=== PATIENT | female | born 2000 | race Two or more races ===

== ENCOUNTER 2023-04-22 00:41 | Inpatient (IN) | payer BC, OTHER ==
[2023-04-21] MEDS: LORAZEPAM INJ 2 MG/ML VIAL IV ONE (23:58)
[~2023-04-22] VITALS: Ht 170.2 cm; Wt 129.3 kg
--- NOTE | 2023-04-22 00:43 | NUR ---
FABY 87 FROM A CARE FACILITY FOR WITNESSED SEIZURE. PLACED COMFORTABLY IN BED, VITALS CHECKED.
[2023-04-22] MEDS ORDERED: DIVALPROEX SODIUM 500 MG TABLET.DR PO ONE ×2 (00:54→01:00)
[2023-04-22] MEDS ORDERED: LORAZEPAM INJ 2 MG/ML VIAL ONE (00:57)
--- NOTE | 2023-04-22 00:58 | NUR ---
RAC #20G S/L BLOOD COLLECTED AND SENT TO LAB
--- NOTE | 2023-04-22 00:58 | NUR ---
EKG DONE AT BEDSIDE
[2023-04-22] MEDS: LORAZEPAM INJ 2 MG/ML VIAL IV ONE (00:59)
--- NOTE | 2023-04-22 01:00 | NUR ---
PATIENT APPEARS TO BE SHAKING IN BED, FOAMING AT THE MOUTH FOR APPROXIMATELY ONE MINUTE DURING IV INSERTION. MD NOTIFIED. ATIVAN ORDERED AND GIVEN.
--- NOTE | 2023-04-22 01:02 | NUR ---
BB=[id number]
--- NOTE | 2023-04-22 01:11 | NUR ---
PT SIGNED A WAIVER TO PROCEED WITH THE CT
--- NOTE | 2023-04-22 01:20 | NUR ---
PT TO CT W/ TECH
[2023-04-22 01:22] LABS: PLATELET COUNT (AUTO) 192 K/uL (150-450); WHITE BLOOD COUNT (AUTO) 4.5 K/uL (4.3-11.0)
--- NOTE | 2023-04-22 01:35 | NUR ---
PT RETURNED FROM CT WHERE SHE APPARENTLY HAD SEIZURE EPISODES X2 (6 SECONDS, 20 SECONDS) SIMILAR TO SEIZURE UPON ED ARRIVAL. NOTIFIED.
[2023-04-22 01:36] LABS: ALANINE AMINOTRANSFERASE 35 U/L (12-78); ALBUMIN 3.7 g/dL (3.4-5.0); ALKALINE PHOSPHATASE 44 U/L (46-116); ASPARTATE AMINOTRANSFERASE 13 U/L (15-37); BILIRUBIN,DIRECT 0.1 mg/dL (0.0-0.2); BILIRUBIN,TOTAL 0.3 mg/dL (0.2-1.0); CALCIUM, SERUM 9.5 mg/dL (8.5-10.1); CARBON DIOXIDE 30 mmol/L (21-32); CHLORIDE 110 mmol/L (98-107); CREATININE 0.9 mg/dL (0.6-1.3); GLUCOSE 121 mg/dL (74-106); POTASSIUM 3.9 mmol/L (3.5-5.1); SODIUM SERUM 146 mmol/L (136-145); TOTAL PROTEIN, SERUM 5.9 g/dL (6.4-8.2); UREA NITROGEN, BLOOD 12 mg/dL (7-18)
[2023-04-22 01:40] LABS: BASOPHILS % (AUTO) 0.4 % (0.0-2.0); EOSINOPHILS % (AUTO) 0.4 % (0.0-6.0); HEMATOCRIT 35 % (33-45); HEMOGLOBIN 11.7 g/dL (11.5-14.8); LYMPHOCYTES # (AUTO) 2.5 K/uL (0.8-4.8); LYMPHOCYTES % (AUTO) 55.9 % (20.0-44.0); MEAN CORPUSCULAR HGB CONC 34 g/dl (31.0-36.0); MEAN CORPUSCULAR VOLUME 101 fL (82-100); MONOCYTES # (AUTO) 0.5 K/uL (0.1-1.30); MONOCYTES % (AUTO) 10.7 % (2.0-12.0); NEUTROPHILS # (AUTO) 1.5 K/uL (1.8-8.9); NEUTROPHILS % (AUTO) 32.6 % (43.0-81.0); RED BLOOD CELL COUNT(AUTO) 3.45 MIL/uL (4.0-5.2)
--- NOTE | 2023-04-22 01:41 | NUR ---
XR AT BEDSIDE
[2023-04-22 01:45] LABS: ALCOHOL, BLOOD < 3 mg/dL (0-0)
--- NOTE | 2023-04-22 02:03 | NUR ---
COVID SWAB COLLECTED, SENT TO LAB
--- NOTE | 2023-04-22 02:37 | NUR ---
URINE COLLECTED, SENT TO LAB
[2023-04-22 02:54] LABS: BILIRUBIN,URINE NEGATIVE (NEGATIVE); COLOR,URINE YELLOW (YELLOW); LEUKOCYTE ESTERASE ,URINE NEGATIVE (NEGATIVE); NITRITE, URINE NEGATIVE (NEGATIVE); PROTEIN,URINE NEGATIVE (NEGATIVE); UGLUCOSE NEGATIVE (NEGATIVE); UROBILINOGEN,URINE 0.2 EU/dL (0.2)
[2023-04-22] MEDS ORDERED: ACETAMINOPHEN 325 MG TABLET PO PRN (03:00)
[2023-04-22] MEDS ORDERED: ONDANSETRON HCL/PF 4 MG/2 ML VIAL IVP PRN (03:00)
[2023-04-22] MEDS ORDERED: MAG HYDROX/AL HYDROX/SIMETH 30 ML UDC PO PRN (03:00)
[2023-04-22] MEDS ORDERED: Z GUARD REMEDY 4 OZ OINT TP PRN (03:00)
[2023-04-22] MEDS ORDERED: MAGNESIUM HYDROXIDE 30 ML UDC PO PRN (03:00)
[2023-04-22] MEDS ORDERED: ZOLPIDEM TARTRATE 5 MG TABLET PO PRN (03:00)
--- NOTE | 2023-04-22 03:21 | NUR ---
REPORT GIVEN TO TONE GRAMAJO
--- NOTE | 2023-04-22 03:55 | NUR ---
TRANSPORTED TO [facility] VIA ACLS PROTOCOL
[2023-04-22 04:00] VITALS: BP 92/47
--- NOTE | 2023-04-22 04:00 | NUR ---
ADMISSION NOTES, AT 0346 RECEIVED 23 YEAR OLD FEMALE FROM ER DEPARTMENT VIA GURNEY ACCOMPANIED BY 2 NURSES, UNDER MEDICAL SERVICES OF [facility] CRT, ADMITTING DX RECURRENT SEIZURES, PATIENT AWAKE A/O X4, ABLE T O VERBALIZE NEEDS AND CONCERNS, UPON ADMISSION, PT BECOMES AGITATED, TRYING TO GET UP FROM BED, REFUSED SKIN ASSESSMENT AND BED BATH, CHANGED ONLY GOWN, UNABLE TO CHECK SACRUM AREA AND BACK, WILL ENDORSE TO ONCOMING NURSE, STATING THAT SHE WANTS TO GO HOME, REDIRECT BEHAVIOR AND TRY TO KEEP PATIENT SAFE IN BED, AT ROOM AIR NO SOB/ACUTE DISTRESS, NOTED AT THIS TIME, ATTACHED TO TELE MONITOR, AND NSR WITH HR IN 60S, PATIENT WITH IV RIGHT AC 20G PATENT AND INTACT, NO SEIZURE ACTIVITY NOTED AT THIS TIME, AFEBRILE, WILL FOLLOW UP WITH ADMITTING ORDERS AND ADMINISTER MEDICATION ORDERED, CONTINUE TO MONITOR CLOSELY, VITAL SIGNS : 92/47, 100%, 97.8, 62, 22.
[2023-04-22] MEDS ORDERED: LORAZEPAM INJ 2 MG/ML VIAL IV PRN (04:30)
[2023-04-22] MEDS ORDERED: LEVETIRACETAM (500MG) 500 MG/5 ML VIAL IV ONE (04:31)
[2023-04-22] MEDS: LEVETIRACETAM (500MG) 500 MG in IV NS 0.9% 100 ML IV SCH ×3 (04:38→20:30)
--- NOTE | 2023-04-22 06:32 | NUR ---
END OF SHIFT, PATIENT SLEEPING AT THIS TIME, AT ROOM AIR, NO SOB/ACUTE DISTRESS, O2 SAT >98%KEPPRA IV ADMINISTERED ORDERED, BED ALARM ON, CALL LIGHT W/I REACH, NO SEIZURE ACTIVITY NOTED,S/R OF BED PADDED FOR SEIZURE PRECAUTIONS, ORDER FOR SITTER 1:1, AWAITING FOR SITTER, WILL ENDORSE TO ONCOMING NURSE.
[2023-04-22 07:07] LABS: BASOPHILS % (AUTO) 0.2 % (0.0-2.0); EOSINOPHILS % (AUTO) 0.5 % (0.0-6.0); HEMATOCRIT 36 % (33-45); HEMOGLOBIN 11.8 g/dL (11.5-14.8); LYMPHOCYTES # (AUTO) 2.7 K/uL (0.8-4.8); LYMPHOCYTES % (AUTO) 63.9 % (20.0-44.0); MEAN CORPUSCULAR HGB CONC 33 g/dl (31.0-36.0); MEAN CORPUSCULAR VOLUME 103 fL (82-100); MONOCYTES # (AUTO) 0.4 K/uL (0.1-1.30); MONOCYTES % (AUTO) 10.1 % (2.0-12.0); NEUTROPHILS # (AUTO) 1.1 K/uL (1.8-8.9); NEUTROPHILS % (AUTO) 25.3 % (43.0-81.0); PLATELET COUNT (AUTO) 169 K/uL (150-450); RED BLOOD CELL COUNT(AUTO) 3.47 MIL/uL (4.0-5.2); WHITE BLOOD COUNT (AUTO) 4.3 K/uL (4.3-11.0)
[2023-04-22 07:21] LABS: CALCIUM, SERUM 8.9 mg/dL (8.5-10.1); CREATININE 0.7 mg/dL (0.6-1.3); MAGNESIUM 2.1 mg/dL (1.8-2.4); PHOSPHORUS 5.2 mg/dL (2.5-4.9)
--- NOTE | 2023-04-22 07:47 | NUR ---
HANGAR ATTENDANT NOTE PATIENT IN BED ,ON RA, SLEEPING COMFORTABLY AT THIS TIME SKIN WARM AND DRY ,ON RA NO SOB NOTED .RT AC HL INTACT AND FLUSHED WELL , ON SEIZURE PRECAUTION, ON NPO STATUS THIS TIME, BED IN LOWEST AND LOCKED POSITION , CALL LIGHT WITHIHN AUR[place], WILL CONT TO MONITOR
[2023-04-22 08:00] VITALS: BP 104/65
[2023-04-22] MEDS: DIVALPROEX SODIUM 500 MG TABLET.DR PO SCH ×2 (09:42→20:30)
--- NOTE | 2023-04-22 09:46 | NUR ---
telephone station installer note nursing swallow eval at beside done able to swallow 3oz of water well no aspiration nor coughing noted ,keep hob elevated
--- NOTE | 2023-04-22 11:04 | NUR ---
SEAFOOD PREPARER NOTE SEEN BY NEUROLOGIST CHAGO RN FARM LABORER AT BEDSIDE, UPDATED PATIENT CONDITION .WILL F\U
[2023-04-22 12:00] VITALS: BP 118/71
--- NOTE | 2023-04-22 12:29 | NUR ---
PLANT ATTENDANT NOTE UA COLLECTED ORDERED
--- NOTE | 2023-04-22 12:50 | NUR ---
COLLAR TRIMMER NOTE PER DR MORILLO OK TO EAT WILL ORDER SOFT CARDIAC DIET PER DIETARY RECOMMENDATION
--- NOTE | 2023-04-22 14:48 | NUR ---
ALEX Consult: ALEX consult was requested. Patient was brought to the hospital due to seizure. Patient was alert and oriented x3 (self,place,situation). Patient appeared to be cooperative with this scenario writer. Patient reported that she would want to return back to her residential program. She stated that she currently has no supportive system at this time. Patient was in [facility] and was transferred to [facility] she has been there for a day. She would want to return back to her treatment center when stable. Patient denies suicidal or homicidal ideation. She denies visual/auditory hallucinations. DC PLAN: Pt wants to return back to her treatment center [facility] and ALEX spoke with Juan ([phone]) who is the director stated that pt is welcomed back and he stated if needed he will leaf size picker the pt.
[2023-04-22 14:53] LABS: CHOLESTEROL 145 mg/dL (<200); HDL CHOLESTEROL 48 mg/dL (40-60); LDL 78 mg/dL (0-99); TRIGLYCERIDES 114 mg/dL (30-150)
--- NOTE | 2023-04-22 15:31 | NUR ---
telephone services sales representative note spoke with patient become more alert oriented will monitor closely, called nursing facility she come from, spoke with house moving supervisor Julian
[2023-04-22] MEDS ORDERED: GABA-532 PO ×2 (15:46)
[2023-04-22] MEDS ORDERED: CHOL100043 PO (15:46)
[2023-04-22] MEDS ORDERED: NAPR-1009 PO (15:46)
[2023-04-22] MEDS ORDERED: NYST15PO3 TP (15:46)
[2023-04-22] MEDS ORDERED: LEVO88TA5 PO (15:46)
[2023-04-22] MEDS ORDERED: IBUP-1957 PO (15:46)
[2023-04-22] MEDS ORDERED: HYDR50TA61 PO (15:46)
[2023-04-22] MEDS ORDERED: NICO-676 TP (15:46)
[2023-04-22] MEDS ORDERED: METF-440 PO (15:46)
[2023-04-22 16:00] VITALS: BP 106/60
--- NOTE | 2023-04-22 17:48 | NUR ---
GORING CUTTER NOTE PATIENT WANTS TO GO AMA , CALLED TO DR MORILLO ,HE IS NOT DISCHARGING HOME TODAY , PATIENT SIGNED FORM AMA ,CALLED [facility] DIRECTED FROM FACILITY PATENT COME FROM , LEFT A MESSAGE ABOUT AMA ,WILL F\U
--- NOTE | 2023-04-22 18:33 | NUR ---
REFINING STILL OPERATOR NOTE PATIENT IN BED ALERT ,AWAKE, ON RA ,NO SOB NOTED AT THIS TIME, ON SEIZURE PRECAUTION, SITTER AT BEDSIDE ORDERED, , RT AC HL INTACT AND FLUSHED WELL , ATE DINNER, ABLE TO EAT WELL , BED IN LOWEST AND LOCKED POSITION, STILL WILLING TO GO AMA , EXPLAINED THAT PATIENT NOT DISCHARGE HOME PER DR MORILLO AND EXPLAINED OF BENEFICES TO STAY IN HOSPITAL, AWAITING FOR SUZY FROM [facility], WILL F\U
--- NOTE | 2023-04-22 19:30 | NUR ---
MACHINE CLOTH MEASURER OPENING NOTE RECEIVED PATIENT SLEEPING AT THIS TIME, AT ROOM AIR, NO SOB/ACUTE DISTRESS, BED ALARM ON, IV SITE ON RIGHT AC, INTACT PATENT AND FLUSHING WELL, CALL LIGHT W/I REACH, NO SEIZURE ACTIVITY NOTED,SIDE RAILS OF BED PADDED FOR SEIZURE PRECAUTIONS WILL CONTINUE PLAN OF CARE.
[2023-04-22 20:50] VITALS: BP 102/62
[2023-04-23] VITALS: BP 103/64
[2023-04-23 04:48] VITALS: BP 106/61
--- NOTE | 2023-04-23 06:30 | NUR ---
ADAPTED PHYSICAL EDUCATION SPECIALIST CLOSING NOTE PATIENT IN BED RESTING, A/O X4, BREATHING EVEN AND UNLABORED, NO S/S OF DISTRESS NOTED, DENIES PAIN AT THIS TIME, ALL DUE MEDS GIVEN PER MD ORDER, TOLERATED WELL, ON TELE MONITOR, SR 74, PATIENT EXPERIENCED SEIZURE LESS THAN 30 SECONDS @0600, ATIVAN 1ML GIVEN ORDERED BY MD, ALL NEEDS MET, SAFETY MEASURES RENDERRED, SIDE RAILS PADDED FOR SEIZURE PRECAUTION, BED ALARM IN PLACE, SIDE RAILS UP X2, CALL LIGHT WITHIN REACH, WILL ENDORSE ROBER TO AM SHIFT RN
--- NOTE | 2023-04-23 07:46 | NUR ---
PULP AND PAPER TESTER OPENING NOTE RECEIVED PATIENT IN BED RESTING, A/O X4, BREATHING EVEN AND UNLABORED, NO S/S OF DISTRESS NOTED, DENIES PAIN AT THIS TIME, ON TELE MONITOR, SR 80, PATIENT EXPERIENCED SEIZURE LESS THAN 30 SECONDS @0600, ATIVAN 1ML GIVEN ORDERED BY MD, ALL SAFETY MEASURES IN PLACE. SIDE RAILS PADDED FOR SEIZURE PRECAUTION, BED ALARM IN PLACE, SIDE RAILS UP X2, CALL LIGHT WITHIN REACH,BED ALARM ON
[2023-04-23 08:00] VITALS: BP 106/59
[2023-04-23] MEDS: LEVETIRACETAM (500MG) 500 MG in IV NS 0.9% 100 ML IV SCH (08:44)
[2023-04-23] MEDS: DIVALPROEX SODIUM 500 MG TABLET.DR PO SCH (09:17)
--- NOTE | 2023-04-23 10:49 | NUR ---
PATIENT WANTS TO LEAVE HOSPITAL,PER MIESHA ALMONTE FROM [facility] WILL PICKUP PT AT 1130,DR. MORILLO NOTIFIED AND OK TO DISCHARGE PT. GAVE ORDERS,PRIMARY RN NOTIFIED.
--- NOTE | 2023-04-23 11:45 | NUR ---
furniture maker note pt left in stable condition. removed iv and tele monitor box. pt ambulatory and indeopendent. went over discharge instruction, health teachings with patient. pt verbalized understanding. pt picked up sober living staff, escorted otu by nursing staff. by wheelchair. all belongings with pt
[2023-04-23] MEDS ORDERED: LEVETIRACETAM (250 MG) 250 MG TABLET PO SCH (21:00)
== END 2023-04-23 13:51 | DRG 101 ==
LOC: ER 00:43 → TELE1 03:13
DX: R56.9 Unspecified convulsions (principal); F84.0 Autistic disorder; Z68.41 Body mass index [BMI] 40.0-44.9, adult; F43.10 Post-traumatic stress disorder, unspecified; Z20.822 Contact with and (suspected) exposure to COVID-19; F90.9 Attention-deficit hyperactivity disorder, unspecified type; E11.9 Type 2 diabetes mellitus without complications; F32.A Depression, unspecified; F25.9 Schizoaffective disorder, unspecified; D64.9 Anemia, unspecified; Z88.5 Allergy status to narcotic agent; Z88.0 Allergy status to penicillin; Z88.8 Allergy status to other drugs, medicaments and biological substances; E66.01 Morbid (severe) obesity due to excess calories; Z87.828 Personal history of other (healed) physical injury and trauma
CPT/HCPCS: 36415; 70450-TC; 71045-TC; 80048-TC; 80061-TC; 80076-TC; 80164-TC; 82962-TC; 83735-TC; 84100-TC; 84443-TC; 84703-TC; 85025-TC; 85730-TC; 87081-TC; A4223; C9803; G0378; G0480; J1953; J2060; J7030

== ENCOUNTER 2024-08-22 21:50 | Emergency (ER) | payer BC ==
[~2024-08-22] VITALS: Ht 180.3 cm; Wt 99.8 kg
[~2024-08-22 21:50] MED LIST: CHOL100043 PO; GABA-532 PO; HYDR50TA61 PO; IBUP-1957 PO; LEVO88TA5 PO; METF-440 PO; NAPR-1009 PO; NICO-676 TP; NYST15PO3 TP
[2024-08-23 00:05] LABS: BASOPHILS % (AUTO) 0.4 % (0.0-2.0); EOSINOPHILS % (AUTO) 0.8 % (0.0-6.0); HEMATOCRIT 36 % (33-45); HEMOGLOBIN 12.1 g/dL (11.5-14.8); LYMPHOCYTES # (AUTO) 1.9 K/uL (0.8-4.8); LYMPHOCYTES % (AUTO) 50.5 % (20.0-44.0); MEAN CORPUSCULAR HEMOGLOBIN 33 PG (26.0-33.0); MEAN CORPUSCULAR HGB CONC 33 g/dl (31.0-36.0); MEAN CORPUSCULAR VOLUME 99 fL (82-100); MONOCYTES # (AUTO) 0.3 K/uL (0.1-1.30); MONOCYTES % (AUTO) 9.1 % (2.0-12.0); NEUTROPHILS # (AUTO) 1.5 K/uL (1.8-8.9); NEUTROPHILS % (AUTO) 39.2 % (43.0-81.0); PLATELET COUNT (AUTO) 169 K/uL (150-450); RED BLOOD CELL COUNT(AUTO) 3.66 MIL/uL (4.0-5.2); RED CELL DISTRIBUTION WIDTH 14.3 % (11.5-15.0); WHITE BLOOD COUNT (AUTO) 3.9 K/uL (4.3-11.0)
[2024-08-23 00:15] LABS: CALCIUM, SERUM 9.3 mg/dL (8.5-10.1); CREATININE 0.8 mg/dL (0.6-1.3); POTASSIUM 3.4 mmol/L (3.5-5.1)
[2024-08-23 00:20] LABS: BILIRUBIN,TOTAL 0.4 mg/dL (0.2-1.0); TOTAL PROTEIN, SERUM 7.2 g/dL (6.4-8.2)
[2024-08-23] MEDS: ONDANSETRON HCL/PF - ER 4 MG/2 ML VIAL IV ONE (01:00)
[2024-08-23 01:04] LABS: PREGNANCY TEST URINE QUAL NEGATIVE (NEGATIVE)
[2024-08-23 01:05] LABS: ADD URINE CULTURE YES; APPEARANCE,URINE SLIGHTLY CLOUDY (CLEAR); BACTERIA,URINE Few /HPF (None Seen); BILIRUBIN,URINE NEGATIVE (NEGATIVE); BLOOD, URINE 2+ Ery/uL (NEGATIVE); COLOR,URINE YELLOW (YELLOW); KETONES,URINE TRACE mg/dL (NEGATIVE); LEUKOCYTE ESTERASE ,URINE TRACE (NEGATIVE); NITRITE, URINE NEGATIVE (NEGATIVE); PROTEIN,URINE NEGATIVE (NEGATIVE); SQUAMOUS EPITHELIAL CELL,UR Rare /HPF (None Seen); UGLUCOSE NEGATIVE (NEGATIVE); UROBILINOGEN,URINE 0.2 EU/dL (0.2)
[2024-08-23] MEDS ORDERED: ONDANSETRON HCL/PF 4 MG/2 ML VIAL ONE (01:58)
[2024-08-23] MEDS ORDERED: NITR100C6 PO (04:26)
[2024-08-23] MEDS ORDERED: ONDA4TAB5 PO (04:26)
[2024-08-23 05:55] VITALS: BP 105/62; TEMP 98.4; O2SAT 98
[2024-08-24] MEDS ORDERED: ONDA4TAB11 PO (03:21)
== END 2024-08-23 05:55 | disposition home health service (06) ==
LOC: ER 21:50
DX: N39.0 Urinary tract infection, site not specified (principal); N83.209 Unspecified ovarian cyst, unspecified side; E11.9 Type 2 diabetes mellitus without complications; F20.9 Schizophrenia, unspecified; R10.2 Pelvic and perineal pain; F32.A Depression, unspecified; D64.9 Anemia, unspecified; Z79.1 Long term (current) use of non-steroidal anti-inflammatories (NSAID); Z20.822 Contact with and (suspected) exposure to COVID-19; Z79.891 Long term (current) use of opiate analgesic; Z79.899 Other long term (current) drug therapy; Z88.0 Allergy status to penicillin; Z88.1 Allergy status to other antibiotic agents
CPT/HCPCS: 99285; 71045; 93005; 85025; 36415 ×2; 80053; 74176; 96374; 87426; 87040; 87086; 83690; 84703; 81001; J2405 ×2

== ENCOUNTER 2024-08-23 22:26 | Emergency (ER) | payer BC ==
[~2024-08-23] VITALS: Ht 172.7 cm; Wt 119.7 kg
[2024-08-23] MEDS: ACETAMINOPHEN ES 500 MG TABLET PO ONE
[~2024-08-23 22:26] MED LIST changes: +NITR100C6 PO; +ONDA4TAB5 PO
[2024-08-23 22:45] VITALS: TEMP 97.7
[2024-08-23] MEDS ORDERED: PROCHLORPERAZINE EDISYLATE 10 MG/2 ML VIAL ONE (23:52)
[2024-08-23] MEDS ORDERED: ACETAMINOPHEN ES 500 MG TABLET ONE (23:52)
[2024-08-23] MEDS ORDERED: diphenhydrAMINE HCL 50 MG/ML VIAL ONE (23:53)
[2024-08-23 23:58] LABS: BASOPHILS % (AUTO) 0.7 % (0.0-2.0); EOSINOPHILS % (AUTO) 0.9 % (0.0-6.0); HEMATOCRIT 35 % (33-45); HEMOGLOBIN 11.6 g/dL (11.5-14.8); LYMPHOCYTES % (AUTO) 57.3 % (20.0-44.0); MEAN CORPUSCULAR HEMOGLOBIN 33 PG (26.0-33.0); MEAN CORPUSCULAR HGB CONC 34 g/dl (31.0-36.0); MEAN CORPUSCULAR VOLUME 99 fL (82-100); MONOCYTES # (AUTO) 0.3 K/uL (0.1-1.30); NEUTROPHILS # (AUTO) 1.1 K/uL (1.8-8.9); NEUTROPHILS % (AUTO) 31.1 % (43.0-81.0); PLATELET COUNT (AUTO) 165 K/uL (150-450); RED BLOOD CELL COUNT(AUTO) 3.53 MIL/uL (4.0-5.2); RED CELL DISTRIBUTION WIDTH 14.8 % (11.5-15.0); WHITE BLOOD COUNT (AUTO) 3.4 K/uL (4.3-11.0)
[2024-08-24] MEDS: diphenhydrAMINE HCL 50 MG/ML VIAL IV ONE
[2024-08-24] MEDS: PROCHLORPERAZINE EDISYLATE 10 MG/2 ML VIAL IM/IV ONE
[2024-08-24] MEDS: IV NS 0.9% 1,000 ML BAG IV ONE
[2024-08-24 00:06] LABS: CALCIUM, SERUM 9.2 mg/dL (8.5-10.1); CREATININE 0.8 mg/dL (0.6-1.3); POTASSIUM 3.5 mmol/L (3.5-5.1)
[2024-08-24 00:12] LABS: BILIRUBIN,DIRECT 0.1 mg/dL (0.0-0.2); BILIRUBIN,TOTAL 0.4 mg/dL (0.2-1.0)
[2024-08-24] MEDS ORDERED: ONDA4TAB11 PO (03:21)
[2024-08-24 04:19] VITALS: BP 114/68; O2SAT 99
== END 2024-08-24 04:20 | disposition home or self-care (01) ==
LOC: ER 22:27
DX: R11.2 Nausea with vomiting, unspecified (principal); R10.84 Generalized abdominal pain; R51.9 Headache, unspecified; E11.9 Type 2 diabetes mellitus without complications; Z88.0 Allergy status to penicillin; Z88.5 Allergy status to narcotic agent; Z79.1 Long term (current) use of non-steroidal anti-inflammatories (NSAID)
CPT/HCPCS: 99284; 93005; 85025; 80048; 83690; 36415; 80076; 96374; 96361; 96375; J0780; J1200; J7030

== ENCOUNTER 2024-08-25 22:56 | Inpatient (IN) | payer BC ==
[~2024-08-25] VITALS: Ht 172.7 cm; Wt 119.8 kg
[~2024-08-25 22:56] MED LIST changes: +ONDA4TAB11 PO
[2024-08-26] MEDS: IV NS 0.9% 1,000 ML IV ONE (01:44)
[2024-08-26 01:57] LABS: BASOPHILS % (AUTO) 0.4 % (0.0-2.0); EOSINOPHILS % (AUTO) 0.9 % (0.0-6.0); HEMATOCRIT 33 % (33-45); HEMOGLOBIN 11.5 g/dL (11.5-14.8); LYMPHOCYTES # (AUTO) 1.9 K/uL (0.8-4.8); LYMPHOCYTES % (AUTO) 50.4 % (20.0-44.0); MEAN CORPUSCULAR HEMOGLOBIN 34 PG (26.0-33.0); MEAN CORPUSCULAR HGB CONC 35 g/dl (31.0-36.0); MEAN CORPUSCULAR VOLUME 98 fL (82-100); MONOCYTES # (AUTO) 0.2 K/uL (0.1-1.30); MONOCYTES % (AUTO) 6.3 % (2.0-12.0); NEUTROPHILS # (AUTO) 1.6 K/uL (1.8-8.9); PLATELET COUNT (AUTO) 159 K/uL (150-450); RED BLOOD CELL COUNT(AUTO) 3.38 MIL/uL (4.0-5.2); RED CELL DISTRIBUTION WIDTH 14.3 % (11.5-15.0); WHITE BLOOD COUNT (AUTO) 3.8 K/uL (4.3-11.0)
[2024-08-26 02:03] LABS: CALCIUM, SERUM 9.1 mg/dL (8.5-10.1); CARBON DIOXIDE 32 mmol/L (21-32); CHLORIDE 106 mmol/L (98-107); CREATININE 0.8 mg/dL (0.6-1.3); GLUCOSE 114 mg/dL (74-106); POTASSIUM 3.6 mmol/L (3.5-5.1); SODIUM SERUM 143 mmol/L (136-145); UREA NITROGEN, BLOOD 8 mg/dL (7-18)
[2024-08-26 02:18] LABS: ALANINE AMINOTRANSFERASE 19 U/L (12-78); ALBUMIN 3.9 g/dL (3.4-5.0); ALCOHOL, BLOOD < 3 mg/dL (0-10); ALKALINE PHOSPHATASE 75 U/L (46-116); ASPARTATE AMINOTRANSFERASE 12 U/L (15-37); BILIRUBIN,TOTAL 0.3 mg/dL (0.2-1.0); TOTAL PROTEIN, SERUM 6.6 g/dL (6.4-8.2)
[2024-08-26 02:19] LABS: NT-PRO BNP 9 pg/mL (0-125)
[2024-08-26] MEDS: ONDANSETRON HCL/PF - ER 4 MG/2 ML VIAL IV ONE (04:30)
[2024-08-26] MEDS ORDERED: ONDANSETRON HCL/PF 4 MG/2 ML VIAL ONE (04:33)
[2024-08-26] MEDS ORDERED: ONDANSETRON HCL/PF 4 MG/2 ML VIAL IVP PRN (06:00)
[2024-08-26] MEDS ORDERED: MAG HYDROX/AL HYDROX/SIMETH 30 ML UDC PO PRN (06:00)
[2024-08-26] MEDS ORDERED: Z GUARD REMEDY 4 OZ OINT TP PRN (06:00)
[2024-08-26] MEDS ORDERED: MAGNESIUM HYDROXIDE 30 ML UDC PO PRN (06:00)
[2024-08-26 07:50] LABS: BASOPHILS % (AUTO) 0.5 % (0.0-2.0); EOSINOPHILS % (AUTO) 0.6 % (0.0-6.0); HEMATOCRIT 32 % (33-45); HEMOGLOBIN 10.8 g/dL (11.5-14.8); LYMPHOCYTES # (AUTO) 1.8 K/uL (0.8-4.8); LYMPHOCYTES % (AUTO) 59.3 % (20.0-44.0); MEAN CORPUSCULAR HEMOGLOBIN 34 PG (26.0-33.0); MEAN CORPUSCULAR HGB CONC 34 g/dl (31.0-36.0); MEAN CORPUSCULAR VOLUME 99 fL (82-100); MONOCYTES # (AUTO) 0.3 K/uL (0.1-1.30); MONOCYTES % (AUTO) 8.5 % (2.0-12.0); NEUTROPHILS # (AUTO) 0.9 K/uL (1.8-8.9); NEUTROPHILS % (AUTO) 31.1 % (43.0-81.0); PLATELET COUNT (AUTO) 147 K/uL (150-450); RED BLOOD CELL COUNT(AUTO) 3.24 MIL/uL (4.0-5.2); RED CELL DISTRIBUTION WIDTH 14.4 % (11.5-15.0); WHITE BLOOD COUNT (AUTO) 3.1 K/uL (4.3-11.0)
[2024-08-26] MEDS ORDERED: BUSP30TA2 PO (08:09)
[2024-08-26] MEDS ORDERED: DOCU100T2 PO (08:09)
[2024-08-26] MEDS ORDERED: OLANZAPINE PO (08:09)
[2024-08-26] MEDS ORDERED: FERR-68 PO (08:09)
[2024-08-26] MEDS ORDERED: GABA600T12 PO (08:09)
[2024-08-26] MEDS ORDERED: BISA5TAB10 PO (08:09)
[2024-08-26] MEDS ORDERED: ATOM40CA PO (08:09)
[2024-08-26] MEDS ORDERED: CRAN500T3 PO (08:09)
[2024-08-26] MEDS ORDERED: MIDO5TAB4 PO (08:09)
[2024-08-26] MEDS ORDERED: METO-295 PO (08:09)
[2024-08-26] MEDS ORDERED: POLY17PO4 PO (08:09)
[2024-08-26] MEDS ORDERED: SAMIDORPHAN PO (08:09)
[2024-08-26] MEDS ORDERED: DICY10CA13 PO (08:09)
[2024-08-26] MEDS ORDERED: SERT50TA PO (08:09)
[2024-08-26] MEDS ORDERED: TRAZ-257 PO (08:09)
[2024-08-26 08:41] LABS: ALBUMIN 3.5 g/dL (3.4-5.0); BILIRUBIN,DIRECT 0.1 mg/dL (0.0-0.2); BILIRUBIN,TOTAL 0.2 mg/dL (0.2-1.0); CALCIUM, SERUM 8.6 mg/dL (8.5-10.1); CREATININE 0.7 mg/dL (0.6-1.3); PHOSPHORUS 4.3 mg/dL (2.5-4.9); POTASSIUM 4.4 mmol/L (3.5-5.1); TOTAL PROTEIN, SERUM 6.1 g/dL (6.4-8.2)
[2024-08-26 08:51] LABS: THYROID STIMULATING HORMONE 2.85 uIU/mL (0.358-3.74)
[2024-08-26 10:00] VITALS: BP 94/57; TEMP 97.5; O2SAT 96
[2024-08-26] MEDS: PANTOPRAZOLE 40 MG TABLET.DR PO SCH (11:38)
[2024-08-26 11:50] LABS: THYROID STIMULATING HORMONE 2.72 uIU/mL (0.358-3.74)
[2024-08-26 12:00] VITALS: BP 112/64
[2024-08-26 13:00] VITALS: BP 102/65
[2024-08-26 13:01] VITALS: BP 111/57
[2024-08-26 16:00] VITALS: BP 99/59; TEMP 97.2; O2SAT 96
[2024-08-26] MEDS: GABAPENTIN 300 MG CAPSULE PO SCH (18:15)
[2024-08-26] MEDS: METOCLOPRAMIDE HCL 10 MG TABLET PO SCH (21:45)
[2024-08-26] MEDS: FERROUS SULFATE (325 MG) 325 MG/TAB TABLET PO SCH (21:45)
[2024-08-26] MEDS: SERTRALINE HCL 50 MG TABLET PO SCH (21:46)
[2024-08-26] MEDS ORDERED: TRAZODONE 50 MG TABLET PO PRN (22:00)
[2024-08-26] MEDS: ACETAMINOPHEN 325 MG TABLET PO PRN (23:59)
[2024-08-27 06:42] LABS: BASOPHILS % (AUTO) 0.6 % (0.0-2.0); EOSINOPHILS % (AUTO) 0.7 % (0.0-6.0); HEMATOCRIT 34 % (33-45); HEMOGLOBIN 11.4 g/dL (11.5-14.8); MEAN CORPUSCULAR HEMOGLOBIN 34 PG (26.0-33.0); MEAN CORPUSCULAR HGB CONC 34 g/dl (31.0-36.0); MEAN CORPUSCULAR VOLUME 98 fL (82-100); MONOCYTES # (AUTO) 0.3 K/uL (0.1-1.30); MONOCYTES % (AUTO) 6.9 % (2.0-12.0); NEUTROPHILS # (AUTO) 1.4 K/uL (1.8-8.9); NEUTROPHILS % (AUTO) 37.8 % (43.0-81.0); PLATELET COUNT (AUTO) 149 K/uL (150-450); RED CELL DISTRIBUTION WIDTH 14.7 % (11.5-15.0); WHITE BLOOD COUNT (AUTO) 3.6 K/uL (4.3-11.0)
[2024-08-27 07:17] LABS: CALCIUM, SERUM 9.1 mg/dL (8.5-10.1); CREATININE 0.5 mg/dL (0.6-1.3); PHOSPHORUS 4.3 mg/dL (2.5-4.9); POTASSIUM 3.7 mmol/L (3.5-5.1)
[2024-08-27] MEDS: LEVOTHYROXINE SODIUM 88 MCG TABLET PO SCH (07:47)
[2024-08-27] MEDS: DOCUSATE SODIUM 100 MG CAPSULE PO SCH (09:56)
[2024-08-27] MEDS: DICYCLOMINE HCL 10 MG CAPSULE PO SCH (09:56)
[2024-08-27] MEDS: busPIRone 5 MG TABLET PO SCH (09:56)
[2024-08-27 09:57] VITALS: BP 96/54
[2024-08-27] MEDS: MIDODRINE HCL (5MG) 5 MG TABLET PO SCH (09:57)
[2024-08-27] MEDS: BISACODYL (5 MG) 5 MG TABLET.DR PO SCH (09:57)
[2024-08-27] MEDS: POLYETHYLENE GLYCOL 3350 17 GM POWD.PACK PO SCH (09:57)
[2024-08-27 12:08] LABS: FOLIC ACID 4.9 ng/mL (>3.0)
== END 2024-08-27 12:35 | disposition home or self-care (01) | DRG 92 ==
LOC: ER 22:59 → TELE1 08-26 08:13
PROVIDERS: ADMIT Internal Medicine; ATTEND Internal Medicine
DX: G90.A Postural orthostatic tachycardia syndrome [POTS] (principal); F84.0 Autistic disorder; F43.10 Post-traumatic stress disorder, unspecified; E86.0 Dehydration; E11.40 Type 2 diabetes mellitus with diabetic neuropathy, unspecified; F90.9 Attention-deficit hyperactivity disorder, unspecified type; R56.9 Unspecified convulsions; F25.9 Schizoaffective disorder, unspecified; F32.A Depression, unspecified; Z88.1 Allergy status to other antibiotic agents; Z88.5 Allergy status to narcotic agent; Z88.0 Allergy status to penicillin; Z88.8 Allergy status to other drugs, medicaments and biological substances; Z79.890 Hormone replacement therapy; Z79.84 Long term (current) use of oral hypoglycemic drugs; Z79.899 Other long term (current) drug therapy; E03.9 Hypothyroidism, unspecified; F32.9 Major depressive disorder, single episode, unspecified; F41.9 Anxiety disorder, unspecified
CPT/HCPCS: 36415; 70450-TC; 71045-TC; 80048-TC; 80053-TC; 80061-TC; 80076-TC; 82607-TC; 83735-TC; 83880; 83921; 84100-TC; 84425; 84443-TC; 84484-TC; 85025-TC; 93307-TC; 93880-TC; G0378; G0480; J2405; J8597

== ENCOUNTER 2024-08-28 18:47 | Emergency (ER) | payer BC ==
[~2024-08-28] VITALS: Ht 172.7 cm; Wt 92.5 kg
[~2024-08-28 18:47] MED LIST changes: +ATOM40CA PO; +BISA5TAB10 PO; +BUSP30TA2 PO; -CHOL100043 PO; +CRAN500T3 PO; +DICY10CA13 PO; +DOCU100T2 PO; +FERR-68 PO; -GABA-532 PO; +GABA600T12 PO; -IBUP-1957 PO; +METO-295 PO; +MIDO5TAB4 PO; -NAPR-1009 PO; -NICO-676 TP; -NITR100C6 PO; -NYST15PO3 TP; +OLANZAPINE PO; -ONDA4TAB11 PO; -ONDA4TAB5 PO; +POLY17PO4 PO; +SAMIDORPHAN PO; +SERT50TA PO; +TRAZ-257 PO
[2024-08-28 20:02] VITALS: BP 113/62; TEMP 98.1; O2SAT 95
== END 2024-08-28 20:02 | disposition home or self-care (01) ==
LOC: ER 18:51
DX: Z46.59 Encounter for fitting and adjustment of other gastrointestinal appliance and device (principal); R11.0 Nausea; K31.84 Gastroparesis; E11.43 Type 2 diabetes mellitus with diabetic autonomic (poly)neuropathy; F32.A Depression, unspecified; F84.0 Autistic disorder; F90.9 Attention-deficit hyperactivity disorder, unspecified type; Z79.84 Long term (current) use of oral hypoglycemic drugs; Z79.899 Other long term (current) drug therapy; Z88.0 Allergy status to penicillin; Z88.5 Allergy status to narcotic agent

== ENCOUNTER 2024-09-05 20:00 | Inpatient (IN) | payer BC ==
[~2024-09-05] VITALS: Ht 172.7 cm; Wt 121.1 kg
[2024-09-05] MEDS ORDERED: ONDANSETRON HCL/PF 4 MG/2 ML VIAL ONE (21:44)
[2024-09-05] MEDS: ONDANSETRON HCL/PF 4 MG/2 ML VIAL IVP ONE (21:51)
[2024-09-05] MEDS: IV NS 0.9% 1,000 ML BAG IV ONE ×2 (21:51→23:00)
[2024-09-05 21:55] LABS: BASOPHILS % (AUTO) 0.6 % (0.0-2.0); EOSINOPHILS % (AUTO) 0.3 % (0.0-6.0); HEMATOCRIT 34 % (33-45); HEMOGLOBIN 11.7 g/dL (11.5-14.8); LYMPHOCYTES # (AUTO) 2.1 K/uL (0.8-4.8); LYMPHOCYTES % (AUTO) 47.9 % (20.0-44.0); MEAN CORPUSCULAR HEMOGLOBIN 34 PG (26.0-33.0); MEAN CORPUSCULAR HGB CONC 35 g/dl (31.0-36.0); MEAN CORPUSCULAR VOLUME 98 fL (82-100); MONOCYTES # (AUTO) 0.4 K/uL (0.1-1.30); MONOCYTES % (AUTO) 9.9 % (2.0-12.0); NEUTROPHILS # (AUTO) 1.9 K/uL (1.8-8.9); NEUTROPHILS % (AUTO) 41.3 % (43.0-81.0); PLATELET COUNT (AUTO) 168 K/uL (150-450); RED BLOOD CELL COUNT(AUTO) 3.44 MIL/uL (4.0-5.2); RED CELL DISTRIBUTION WIDTH 14.7 % (11.5-15.0); WHITE BLOOD COUNT (AUTO) 4.5 K/uL (4.3-11.0)
[2024-09-05 22:03] LABS: CALCIUM, SERUM 9.3 mg/dL (8.5-10.1); CARBON DIOXIDE 30 mmol/L (21-32); CHLORIDE 107 mmol/L (98-107); CREATININE 0.6 mg/dL (0.6-1.3); GLUCOSE 95 mg/dL (74-106); POTASSIUM 3.8 mmol/L (3.5-5.1); SODIUM SERUM 145 mmol/L (136-145); UREA NITROGEN, BLOOD 8 mg/dL (7-18)
[2024-09-05 22:16] LABS: ALANINE AMINOTRANSFERASE 26 U/L (12-78); ALBUMIN 3.8 g/dL (3.4-5.0); ALKALINE PHOSPHATASE 87 U/L (46-116); ASPARTATE AMINOTRANSFERASE 14 U/L (15-37); BILIRUBIN,DIRECT 0.1 mg/dL (0.0-0.2); BILIRUBIN,TOTAL 0.2 mg/dL (0.2-1.0); NT-PRO BNP 41 pg/mL (0-125); TOTAL PROTEIN, SERUM 6.9 g/dL (6.4-8.2)
[2024-09-05] MEDS ORDERED: METOCLOPRAMIDE HCL 10 MG/2 ML VIAL ONE (22:52)
[2024-09-05] MEDS: METOCLOPRAMIDE HCL 10 MG/2 ML VIAL IV ONE (23:00)
[2024-09-06] VITALS (7 sets, daily range): BP systolic 101–125; BP diastolic 54–71; TEMP 97.7–98.6; O2SAT 96–100
[2024-09-06] MEDS ORDERED: MIDODRINE HCL (5MG) 5 MG TABLET ONE (00:29)
[2024-09-06] MEDS: MIDODRINE HCL (5MG) 5 MG TABLET PO STA (00:33)
[2024-09-06] MEDS ORDERED: ACETAMINOPHEN 325 MG TABLET PO PRN (01:00)
[2024-09-06] MEDS ORDERED: MAG HYDROX/AL HYDROX/SIMETH 30 ML UDC PO PRN (01:00)
[2024-09-06] MEDS ORDERED: Z GUARD REMEDY 4 OZ OINT TP PRN (01:00)
[2024-09-06] MEDS ORDERED: MAGNESIUM HYDROXIDE 30 ML UDC PO PRN (01:00)
[2024-09-06] MEDS ORDERED: ONDANSETRON HCL/PF 4 MG/2 ML VIAL IVP PRN (01:00)
[2024-09-06] MEDS ORDERED: hydrOXYzine PAMOATE 50 MG CAPSULE PO PRN (01:30)
[2024-09-06] MEDS ORDERED: TRAZODONE 50 MG TABLET PO PRN (01:30)
[2024-09-06] MEDS: IV LR 1000 ML 1,000 ML IV ONE (01:57)
[2024-09-06] MEDS: METOCLOPRAMIDE HCL 10 MG/2 ML VIAL IV PRN (04:23)
[2024-09-06] MEDS ORDERED: hydrOXYzine PAMOATE 25 MG CAPSULE PO PRN (06:30)
[2024-09-06 07:11] LABS: BASOPHILS % (AUTO) 0.3 % (0.0-2.0); EOSINOPHILS % (AUTO) 0.3 % (0.0-6.0); HEMATOCRIT 33 % (33-45); HEMOGLOBIN 11.1 g/dL (11.5-14.8); LYMPHOCYTES # (AUTO) 1.9 K/uL (0.8-4.8); MEAN CORPUSCULAR HEMOGLOBIN 34 PG (26.0-33.0); MEAN CORPUSCULAR HGB CONC 34 g/dl (31.0-36.0); MEAN CORPUSCULAR VOLUME 99 fL (82-100); MONOCYTES # (AUTO) 0.4 K/uL (0.1-1.30); MONOCYTES % (AUTO) 9.4 % (2.0-12.0); NEUTROPHILS # (AUTO) 1.9 K/uL (1.8-8.9); PLATELET COUNT (AUTO) 154 K/uL (150-450); RED BLOOD CELL COUNT(AUTO) 3.28 MIL/uL (4.0-5.2); RED CELL DISTRIBUTION WIDTH 15.1 % (11.5-15.0); WHITE BLOOD COUNT (AUTO) 4.2 K/uL (4.3-11.0)
[2024-09-06] MEDS: LEVOTHYROXINE SODIUM 88 MCG TABLET PO SCH (07:45)
[2024-09-06 08:23] LABS: CALCIUM, SERUM 9.2 mg/dL (8.5-10.1); CREATININE 0.6 mg/dL (0.6-1.3); PHOSPHORUS 3.8 mg/dL (2.5-4.9); POTASSIUM 3.6 mmol/L (3.5-5.1)
[2024-09-06 08:27] LABS: THYROID STIMULATING HORMONE 4.3 uIU/mL (0.358-3.74)
[2024-09-06] MEDS: METFORMIN 500 MG TABLET PO SCH (08:38)
[2024-09-06] MEDS: GABAPENTIN 300 MG CAPSULE PO SCH (08:38)
[2024-09-06] MEDS: DOCUSATE SODIUM 100 MG CAPSULE PO SCH (08:38)
[2024-09-06] MEDS: DICYCLOMINE HCL 10 MG CAPSULE PO SCH (08:38)
[2024-09-06] MEDS: busPIRone 5 MG TABLET PO SCH (08:38)
[2024-09-06] MEDS: BISACODYL (5 MG) 5 MG TABLET.DR PO SCH (08:38)
[2024-09-06] MEDS: MIDODRINE HCL (5MG) 5 MG TABLET PO SCH (08:39)
[2024-09-06] MEDS ORDERED: ATOMOXETINE HCL 40 MG PO SCH (09:00)
[2024-09-06] MEDS: METOCLOPRAMIDE HCL 10 MG/2 ML VIAL IV SCH (10:26)
[2024-09-06 12:17] LABS: APPEARANCE,URINE CLEAR (CLEAR); BILIRUBIN,URINE NEGATIVE (NEGATIVE); BLOOD, URINE NEGATIVE Ery/uL (NEGATIVE); COLOR,URINE YELLOW (YELLOW); KETONES,URINE NEGATIVE (NEGATIVE); LEUKOCYTE ESTERASE ,URINE NEGATIVE (NEGATIVE); NITRITE, URINE NEGATIVE (NEGATIVE); PROTEIN,URINE NEGATIVE (NEGATIVE); UGLUCOSE NEGATIVE (NEGATIVE); UROBILINOGEN,URINE 0.2 EU/dL (0.2)
[2024-09-06 12:20] LABS: PREGNANCY TEST URINE QUAL NEGATIVE (NEGATIVE)
[2024-09-06] MEDS ORDERED: Medication Not On Formulary EA (Cranberry Extract (Cranberry) 500 MG) PO SCH (22:00)
[2024-09-06] MEDS ORDERED: SERTRALINE HCL 50 MG TABLET PO SCH (22:00)
[2024-09-06] MEDS ORDERED: SAMIDORPHAN PO SCH (22:00)
[2024-09-06] MEDS ORDERED: FERROUS SULFATE (325 MG) 325 MG/TAB TABLET PO SCH (22:00)
[2024-09-06] MEDS ORDERED: OLANZAPINE PO SCH (22:00)
== END 2024-09-06 16:17 | disposition home or self-care (01) | DRG 92 ==
LOC: ER 20:02 → MED 09-06 00:57 → TELE 09-06 01:33 → MED 09-06 14:41
PROVIDERS: ADMIT Internal Medicine; ATTEND Internal Medicine
DX: G90.A Postural orthostatic tachycardia syndrome [POTS] (principal); F84.0 Autistic disorder; K31.84 Gastroparesis; R11.0 Nausea; F43.10 Post-traumatic stress disorder, unspecified; F90.9 Attention-deficit hyperactivity disorder, unspecified type; F25.9 Schizoaffective disorder, unspecified; F32.A Depression, unspecified; Z88.1 Allergy status to other antibiotic agents; Z91.040 Latex allergy status; Z88.5 Allergy status to narcotic agent; Z88.0 Allergy status to penicillin; Z88.8 Allergy status to other drugs, medicaments and biological substances; Z91.018 Allergy to other foods; Z79.84 Long term (current) use of oral hypoglycemic drugs; Z79.899 Other long term (current) drug therapy; Z79.890 Hormone replacement therapy; T50.915A Adverse effect of multiple unspecified drugs, medicaments and biological substances, initial encounter; Y92.9 Unspecified place or not applicable
CPT/HCPCS: 36415; 71045-TC; 80048-TC; 80076-TC; 82962-TC; 83735-TC; 83880; 84100-TC; 84443-TC; 84484-TC; 84702-TC; 84703-TC; 85025-TC; 87081-TC; A4223; G0378; J2405; J2765; J7120; Q0177

== ENCOUNTER 2024-09-10 18:19 | Emergency (ER) | payer BC ==
[~2024-09-10] VITALS: Ht 172.7 cm; Wt 119.7 kg
[2024-09-10 18:41] LABS: BASOPHILS % (AUTO) 0.7 % (0.0-2.0); EOSINOPHILS % (AUTO) 0.1 % (0.0-6.0); HEMATOCRIT 38 % (33-45); HEMOGLOBIN 12.8 g/dL (11.5-14.8); LYMPHOCYTES # (AUTO) 1.9 K/uL (0.8-4.8); LYMPHOCYTES % (AUTO) 43.1 % (20.0-44.0); MEAN CORPUSCULAR HEMOGLOBIN 34 PG (26.0-33.0); MEAN CORPUSCULAR HGB CONC 34 g/dl (31.0-36.0); MEAN CORPUSCULAR VOLUME 99 fL (82-100); MONOCYTES # (AUTO) 0.3 K/uL (0.1-1.30); NEUTROPHILS # (AUTO) 2.1 K/uL (1.8-8.9); NEUTROPHILS % (AUTO) 48.1 % (43.0-81.0); PLATELET COUNT (AUTO) 188 K/uL (150-450); RED BLOOD CELL COUNT(AUTO) 3.79 MIL/uL (4.0-5.2); RED CELL DISTRIBUTION WIDTH 14.7 % (11.5-15.0); WHITE BLOOD COUNT (AUTO) 4.3 K/uL (4.3-11.0)
[2024-09-10 18:49] LABS: CALCIUM, SERUM 9.2 mg/dL (8.5-10.1); CARBON DIOXIDE 28 mmol/L (21-32); CHLORIDE 102 mmol/L (98-107); CREATININE 0.7 mg/dL (0.6-1.3); GLUCOSE 154 mg/dL (74-106); POTASSIUM 3.7 mmol/L (3.5-5.1); SODIUM SERUM 137 mmol/L (136-145); UREA NITROGEN, BLOOD 10 mg/dL (7-18)
[2024-09-10 18:52] LABS: INR 1.03 (0.91-1.10); PARTIAL THROMBOPLASTIN TIME 21.1 SEC (24.3-34.3); PROTHROMBIN TIME 10.6 SECS (9.2-11.1)
[2024-09-10 18:55] LABS: ALANINE AMINOTRANSFERASE 28 U/L (12-78); ALCOHOL, BLOOD < 3 mg/dL (0-10); ALKALINE PHOSPHATASE 77 U/L (46-116); ASPARTATE AMINOTRANSFERASE 18 U/L (15-37); BILIRUBIN,DIRECT 0.1 mg/dL (0.0-0.2); BILIRUBIN,TOTAL 0.3 mg/dL (0.2-1.0); TOTAL PROTEIN, SERUM 7.5 g/dL (6.4-8.2)
[2024-09-10 19:03] LABS: ALBUMIN 4.4 g/dL (3.4-5.0)
[2024-09-10 19:27] LABS: PREGNANCY TEST URINE QUAL NEGATIVE (NEGATIVE)
[2024-09-10] MEDS ORDERED: METOCLOPRAMIDE HCL 10 MG/2 ML VIAL ONE (19:27)
[2024-09-10] MEDS ORDERED: ONDANSETRON HCL/PF 4 MG/2 ML VIAL ONE (19:27)
[2024-09-10] MEDS: METOCLOPRAMIDE HCL 10 MG/2 ML VIAL IV ONE (19:31)
[2024-09-10] MEDS: ONDANSETRON HCL/PF - ER 4 MG/2 ML VIAL IV ONE (19:31)
[2024-09-10 19:40] LABS: AMPHETAMINE, URINE NEGATIVE (NEGATIVE); BARBITURATE, URINE NEGATIVE (NEGATIVE); BENZODIAZEPINE, URINE NEGATIVE (NEGATIVE); CANNABINOID, URINE NEGATIVE (NEGATIVE); COCCAINE, URINE NEGATIVE (NEGATIVE); OPIATE, URINE NEGATIVE (NEGATIVE); PHENCYCLIDINE SCREEN,URINE NEGATIVE (NEGATIVE)
[2024-09-10] MEDS ORDERED: PROC5TAB56 PO (20:21)
[2024-09-10 20:32] VITALS: BP 120/82; TEMP 97.5; O2SAT 99
== END 2024-09-10 20:32 | disposition home or self-care (01) ==
LOC: ER 18:25
DX: F44.5 Conversion disorder with seizures or convulsions (principal); R11.2 Nausea with vomiting, unspecified; F32.A Depression, unspecified; F84.0 Autistic disorder; E16.2 Hypoglycemia, unspecified; Z79.84 Long term (current) use of oral hypoglycemic drugs; Z79.899 Other long term (current) drug therapy; Z88.0 Allergy status to penicillin; Z88.5 Allergy status to narcotic agent; Z90.49 Acquired absence of other specified parts of digestive tract; Z91.040 Latex allergy status; Z96.659 Presence of unspecified artificial knee joint; Z87.19 Personal history of other diseases of the digestive system; Z88.8 Allergy status to other drugs, medicaments and biological substances; Z91.018 Allergy to other foods
CPT/HCPCS: 99284; 96374; 96375; 93005; 85025; 80048; 80076; 84703; 36415; 85730; 80320; 80307; J2765; J2405; G0480

== ENCOUNTER 2025-06-07 20:49 | Emergency (ER) | payer BC, MEDICAID ==
[~2025-06-07] VITALS: Ht 170.2 cm; Wt 95.3 kg
[~2025-06-07 20:49] MED LIST changes: +PROC5TAB56 PO
[2025-06-07 20:51] VITALS: BP 133/70; TEMP 98.6
[2025-06-07] MEDS ORDERED: NITR100C PO (21:46)
[2025-06-07] MEDS ORDERED: ONDANSETRON 4 MG TAB.RAPDIS ONE (21:53)
[2025-06-07] MEDS: ONDANSETRON HCL 4 MG/5 ML SOLUTION PO ONE (21:55)
[2025-06-07 21:59] LABS: APPEARANCE,URINE CLOUDY (CLEAR); BLOOD, URINE 2+ Ery/uL (NEGATIVE); LEUKOCYTE ESTERASE ,URINE 3+ (NEGATIVE); NITRITE, URINE NEGATIVE (NEGATIVE); UGLUCOSE NEGATIVE (NEGATIVE)
[2025-06-07 22:09] LABS: ADD URINE CULTURE YES
[2025-06-07] MEDS ORDERED: NITROFURANTOIN/MONOHYDRATE MACROCRYSTALS 100 MG CAPSULE ONE (22:16)
[2025-06-07] MEDS: NITROFURANTOIN/MONOHYDRATE MACROCRYSTALS 100 MG CAPSULE PO ONE (22:18)
[2025-06-07 22:41] VITALS: O2SAT 97
== END 2025-06-07 22:42 | disposition home or self-care (01) ==
LOC: ER 20:52
DX: N39.0 Urinary tract infection, site not specified (principal); F32.A Depression, unspecified; F43.10 Post-traumatic stress disorder, unspecified; F84.0 Autistic disorder; F90.9 Attention-deficit hyperactivity disorder, unspecified type; Z79.84 Long term (current) use of oral hypoglycemic drugs; Z79.899 Other long term (current) drug therapy; Z88.0 Allergy status to penicillin; Z88.5 Allergy status to narcotic agent; Z90.49 Acquired absence of other specified parts of digestive tract; Z91.040 Latex allergy status; Z96.659 Presence of unspecified artificial knee joint
CPT/HCPCS: 99283; 81001; Q0162; 87086-TC